=== PATIENT | female | born 1965 | race Caucasian/White ===

== ENCOUNTER → 2024-06-25 | Outpatient (CLI) | payer BC ==
[~2024-06-25] MED LIST: ASCO500 PO; FISH1000 PO; MAGNESIUM250 MG PO; Multiple Vitam1 EAC1 PO; VITAMIN D32000 UNI1 PO
== END | disposition home or self-care (01) ==
LOC: LAB 15:39 → LAB SHORT 15:39
DX: R10.13 Epigastric pain (principal)
CPT/HCPCS: 87338